=== PATIENT | male | born 1980 | race African-American/Black ===

== ENCOUNTER 2020-04-08 03:49 | Emergency (ER) | payer MEDICAID ==
[~2020-04-08] VITALS: Ht 175.3 cm; Wt 67.3 kg
[2020-04-08] MEDS ORDERED: IBUPROFEN 600 MG TABLET PO ONE (05:15)
[2020-04-08] MEDS ORDERED: CLINDAMYCIN HCL 150 MG CAPSULE PO ONE (05:15)
[2020-04-08 05:31] VITALS: BP 133/79
== END 2020-04-08 06:07 | disposition home or self-care (01) ==
LOC: EMS 03:55
DX: K08.89 Other specified disorders of teeth and supporting structures (principal); F17.210 Nicotine dependence, cigarettes, uncomplicated

== ENCOUNTER 2023-08-04 23:17 | Emergency (ER) | payer MEDICAID ==
[~2023-08-04] VITALS: Ht 175.3 cm; Wt 69.0 kg
[2023-08-04 23:30] VITALS: BP 134/71; PULSE 77; RESP 20; TEMP 97.7
[2023-08-05 01:18] LABS: BASOPHILS % (AUTO) 0.6 % (0.0-2.0); EOSINOPHILS % (AUTO) 0.4 % (1.0-6.0); HEMATOCRIT 49.5 % (41-53); LYMPHOCYTES # (AUTO) 1.8 K/uL (1.0-4.8); LYMPHOCYTES % (AUTO) 7.9 % (22.0-44.0); MEAN CORPUSCULAR HEMOGLOBIN 34.8 pg (26.0-34.0); MEAN CORPUSCULAR HGB CONC 34.5 G/dL (31.0-37.0); MEAN CORPUSCULAR VOLUME 101 fL (80-100); MONOCYTES # (AUTO) 1.2 K/uL (0.1-1.0); MONOCYTES % (AUTO) 5.2 % (2.0-9.0); NEUTROPHILS # (AUTO) 19.4 K/uL (1.8-7.7); PLATELET COUNT (AUTO) 249 K/uL (150-450); RED BLOOD CELL COUNT(AUTO) 4.89 MIL/uL (4.50-5.90); RED CELL DISTRIBUTION WIDTH 14.3 % (11.5-14.5); WHITE BLOOD COUNT (AUTO) 22.6 K/uL (4.5-11.0)
[2023-08-05 01:21] LABS: NEUTROPHILS % (AUTO) 85.9 % (40.0-70.0)
[2023-08-05 01:44] LABS: RBC MORPHOLOGY COMMENT ABNORMAL RBC MORPH
== END 2023-08-05 02:30 | disposition home or self-care (01) ==
LOC: EMS 23:17
DX: S62.612A Displaced fracture of proximal phalanx of right middle finger, initial encounter for closed fracture (principal); S62.614A Displaced fracture of proximal phalanx of right ring finger, initial encounter for closed fracture; F17.210 Nicotine dependence, cigarettes, uncomplicated; V89.2XXA Person injured in unspecified motor-vehicle accident, traffic, initial encounter; Y93.89 Activity, other specified; Y92.89 Other specified places as the place of occurrence of the external cause; Y99.8 Other external cause status
CPT/HCPCS: 99284; 71045; 85025; 36415; 73130; 29125; G0480